=== PATIENT | male | born 2000 | race Caucasian/White ===

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

== ENCOUNTER 2024-01-26 17:30 | Emergency (ER) | payer OTHER ==
[~2024-01-26] VITALS: Ht 175.3 cm; Wt 79.4 kg
[~2024-01-26 17:30] MED LIST changes: +AZIT500T8 PO; -FLO44 IH; +FLUT10.62 IH; +WITC1MED22 TP
[2024-01-26 17:43] VITALS: BP 174/107; PULSE 86; RESP 18; TEMP 96.9; O2SAT 100
[2024-01-26] MEDS: ONDANSETRON 4 MG/2 ML VIAL IVP ONE (18:36)
[2024-01-26] MEDS: NACL 0.9% 1,000 ML IV ONE (18:37)
[2024-01-26 18:46] LABS: BASOPHILS % (AUTO) 0.1 % (0.0-2.0); HEMATOCRIT 45.4 % (36-52); HEMOGLOBIN 15.6 g/dL (12.0-18.0); LYMPHOCYTES # (AUTO) 1.2 K/uL (2.0-11.5); LYMPHOCYTES % (AUTO) 8.2 % (20.5-51.1); MEAN CORPUSCULAR HEMOGLOBIN 31 pg (27-31); MEAN CORPUSCULAR HGB CONC 34 g/dL (33-37); MONOCYTES # (AUTO) 0.6 K/uL (0.8-1.0); MONOCYTES % (AUTO) 4.1 % (1.7-9.3); NEUTROPHILS % (AUTO) 87.6 % (42.2-75.2); PLATELET COUNT (AUTO) 296 K/uL (140-450); RED BLOOD CELL COUNT(AUTO) 4.99 MIL/uL (4.20-6.10); WHITE BLOOD COUNT (AUTO) 14.8 K/uL (4.8-10.8)
[2024-01-26 19:23] LABS: ALBUMIN 5.1 g/dL (3.4-5.0); ANION GAP 19.2 (8-16); CALCIUM 10.1 mg/dL (8.5-10.1); CARBON DIOXIDE 24.3 mmol/L (21-32); CREATININE 1.1 mg/dL (0.6-1.3); POTASSIUM 4.5 mmol/L (3.5-5.1); TOTAL BILIRUBIN 0.7 mg/dL (0.0-1.0); TOTAL PROTEIN, SERUM 8.6 g/dL (6.4-8.2)
[2024-01-26] MEDS ORDERED: ONDA-188 PO (21:59)
[2024-01-26 22:10] VITALS: BP 128/80; PULSE 72; RESP 18; TEMP 97.8; O2SAT 98
== END 2024-01-26 22:10 | disposition home or self-care (01) ==
LOC: MED 17:30
DX: R10.84 Generalized abdominal pain (principal); R11.2 Nausea with vomiting, unspecified; J45.909 Unspecified asthma, uncomplicated; E78.5 Hyperlipidemia, unspecified; F41.9 Anxiety disorder, unspecified; F32.A Depression, unspecified; Z88.8 Allergy status to other drugs, medicaments and biological substances; Z79.899 Other long term (current) drug therapy
CPT/HCPCS: 36415; 74177; 80053; 83690; 85025; 96361; 96374; 99285; J2405; J7030; Q9967